=== PATIENT | male | born 1960 | race Caucasian/White ===

== ENCOUNTER 2016-11-22 09:56 | Emergency (ER) | payer BC ==
[~2016-11-22] VITALS: Ht 188 cm; Wt 112.7 kg
[2016-11-22 10:01] VITALS: TEMP 98.9
[2016-11-22] MEDS ORDERED: LOTENSIN 1010 MG/TAB (10:11)
[2016-11-22] MEDS ORDERED: LOPRESSOR 225 MG/TAB PO (10:11)
[2016-11-22] MEDS ORDERED: HCTZ12.5TAB (10:11)
[2016-11-22] MEDS ORDERED: GLUCOPHAGE500 MG/TAB PO (10:12)
[2016-11-22] MEDS ORDERED: SYNTHROID 0.10.15 MG PO (10:12)
[2016-11-22 10:50] LABS: HEMATOCRIT 46.1 % (42.0-52.0); HEMOGLOBIN 16.7 g/dl (13.5-18.0); MEAN CELL VOLUME 92 fl (80.0-100.0); MEAN CORPUSCULAR HEMOGLOBIN 33 pg (27.0-31.0); MEAN CORPUSCULAR HGB CONC 36 g/dl (33.0-37.0); MEAN PLATELET VOLUME 9.7 fl (7.4-10.4); PLATELET COUNT 181 K/mm3 (130-400); RED BLOOD COUNT 5.01 M/mm3 (4.20-5.60); REDCELL DISTRIBUTION WIDTH-CV 13.7 % (11.5-14.5)
[2016-11-22 10:56] LABS: PROTHROMBIN TIME 10.7 SECONDS (9.7-12.8)
[2016-11-22 10:59] LABS: ADJUSTED CALCIUM 9.1 mg/dL (8.4-10.2); ALANINE AMINOTRANSFERASE 31 U/L (21-72); ALBUMIN 4.4 gm/dL (3.5-5.0); ALKALINE PHOSPHATASE 67 U/L (50-136); ANION GAP 11 mmol/L (7-16); BILIRUBIN,TOTAL 1.2 mg/dL (0.0-1.0); BLOOD UREA NITROGEN 10 mg/dL (9-20); CALCIUM 9.4 mg/dL (8.4-10.2); CARBON DIOXIDE 22 mmol/L (22-30); CHLORIDE 100 mmol/L (98-107); CREATININE, serum 0.68 mg/dL (0.66-1.25); GLUCOSE 110 mg/dL (74-106); PARTIAL THROMBOPLASTIN TIME 28.2 SECONDS (26.0-37.0); POTASSIUM 4.1 mmol/L (3.4-5.0); SODIUM 133 mmol/L (137-145); TOTAL PROTEIN 7.6 gm/dL (6.4-8.2)
[2016-11-22 11:13] LABS: TROPONIN-I < 0.012 ng/mL (0.000-0.034)
[2016-11-22 11:16] LABS: BAND 11 % (0-10); BASOPHIL 2 % (0-2); MYELOCYTE 3 % (0-0); NEUTROPHILS 66 % (42.0-75.2); TOTAL CELLS COUNTED 100
[2016-11-22 11:22] LABS: POLYCHROMASIA 1+; SPHEROCYTE 2+; STOMATOCYTE 2+
[2016-11-22 11:23] LABS: ADD PATHOLOGY DIFF REVIEW YES; PLATELET ESTIMATE NORMAL (NORMAL)
[2016-11-22 11:25] LABS: PH 6 (5-8); SQUAMOUS EPITHELIAL 0-2 /hpf; URINE APPEARANCE Clear; URINE BACTERIA Rare /hpf; URINE BILIRUBIN Negative (NEGATIVE); URINE BLOOD Negative (NEGATIVE); URINE COLOR Yellow; URINE GLUCOSE Negative (NEGATIVE); URINE KETONE Negative (NEGATIVE); URINE RBC 0-2 /hpf; URINE UROBILINOGEN Negative (NEGATIVE); URINE WBC 0-2 /hpf
[2016-11-22 13:15] VITALS: BP 138/80; PULSE 60
[2016-11-24 08:47] LABS: PATHOLOGY DIFF REVIEW OK
== END 2016-11-22 13:20 | disposition home or self-care (01) ==
LOC: COL.ER 09:56
PROVIDERS: Nurse Practitioner
DX: R42 Dizziness and giddiness (principal); F43.9 Reaction to severe stress, unspecified; E11.9 Type 2 diabetes mellitus without complications; I10 Essential (primary) hypertension; E03.9 Hypothyroidism, unspecified; F17.210 Nicotine dependence, cigarettes, uncomplicated; Z79.84 Long term (current) use of oral hypoglycemic drugs; Z90.49 Acquired absence of other specified parts of digestive tract
CPT/HCPCS: J7030

== ENCOUNTER 2017-08-29 08:38 | Day surgery (SDC) | payer BC ==
[~2017-08-29] VITALS: Ht 190.5 cm; Wt 96.6 kg
[~2017-08-29 08:38] MED LIST: GLUCOPHAGE500 MG/TAB PO; HCTZ12.5TAB; LOPRESSOR 225 MG/TAB PO; LOTENSIN 1010 MG/TAB; SYNTHROID 0.10.15 MG PO
[2017-08-29 09:36] VITALS: BP 99/60; PULSE 56; TEMP 97.3
[2017-08-29] MEDS ORDERED: GLUCOPHAGE500 MG/TAB PO (10:03)
[2017-08-29] MEDS ORDERED: LOTENSIN 1010 MG/TAB PO (10:05)
[2017-08-29] MEDS ORDERED: PRIL40 PO (10:05)
[2017-08-29] MEDS ORDERED: CENTRUM SILVER1 CTB PO (10:06)
[2017-08-29] MEDS ORDERED: TOPROL XL 25MG25 MG PO (10:06)
[2017-08-29] MEDS ORDERED: EPA FISH OIL1 SGL PO (10:06)
[2017-08-29] MEDS ORDERED: VITAMIN D 400400 IU PO (10:07)
[2017-08-29 11:20] VITALS: BP 92/50; PULSE 52
[2017-08-29] MEDS ORDERED: NORCO 325 MG-51 TAB PO (11:22)
[2017-08-29] MEDS ORDERED: MOTRIN 600600 MG/TAB PO (11:23)
[2017-08-29] MEDS ORDERED: COLACE 100100 MG/CAP PO (11:23)
[2017-08-29 11:35] VITALS: BP 108/67; PULSE 45
[2017-08-29 11:50] VITALS: BP 103/59; PULSE 52
[2017-08-29 12:05] VITALS: BP 117/66; PULSE 45
[2017-08-29 12:20] VITALS: BP 111/88; PULSE 51
== END 2017-08-29 13:00 | disposition home or self-care (01) ==
LOC: SDCO 08:38
DX: K42.9 Umbilical hernia without obstruction or gangrene (principal); I10 Essential (primary) hypertension; E03.9 Hypothyroidism, unspecified; E11.21 Type 2 diabetes mellitus with diabetic nephropathy; Z79.84 Long term (current) use of oral hypoglycemic drugs; Z79.899 Other long term (current) drug therapy; J44.9 Chronic obstructive pulmonary disease, unspecified; F17.210 Nicotine dependence, cigarettes, uncomplicated
CPT/HCPCS: C1781; J0690; J1885; J2405; J2704; J3010; J7030

== ENCOUNTER 2018-01-17 23:04 | Emergency (ER) | payer BC ==
[~2018-01-17] VITALS: Ht 188 cm; Wt 98.6 kg
[~2018-01-17 23:04] MED LIST changes: +CENTRUM SILVER1 CTB PO; +COLACE 100100 MG/CAP PO; +EPA FISH OIL1 SGL PO; +LOTENSIN 1010 MG/TAB PO; +MOTRIN 600600 MG/TAB PO; +NORCO 325 MG-51 TAB PO; +PRIL40 PO; +TOPROL XL 25MG25 MG PO; +VITAMIN D 400400 IU PO
[2018-01-17 23:07] VITALS: TEMP 98.2
[2018-01-17 23:32] LABS: BASO % 0.2 % (0.0-2.0); EOS # 0.2 (0.0-0.7); EOS % 2.2 % (0-4.0); GRAN # 5.6 (1.4-6.5); GRAN % 63.5 % (42.2-75.2); HEMATOCRIT 44.5 % (42.0-52.0); HEMOGLOBIN 15.1 g/dl (13.5-18.0); LYMPH # 2.2 (1.2-3.4); LYMPH % 24.4 % (20.0-51.0); MEAN CELL VOLUME 91 fl (80.0-100.0); MEAN CORPUSCULAR HEMOGLOBIN 31 pg (27.0-31.0); MEAN CORPUSCULAR HGB CONC 34 g/dl (33.0-37.0); MEAN PLATELET VOLUME 9.8 fl (7.4-10.4); MONO # 0.8 (0.1-0.6); PLATELET COUNT 160 K/mm3 (130-400); RED BLOOD COUNT 4.87 M/mm3 (4.20-5.60); REDCELL DISTRIBUTION WIDTH-CV 13.2 % (11.5-14.5)
[2018-01-17 23:38] LABS: INR 0.9 (0.8-3.0); PROTHROMBIN TIME 10.6 SECONDS (9.7-12.8)
[2018-01-17 23:43] LABS: ALANINE AMINOTRANSFERASE 37 U/L (21-72); ALBUMIN 4.1 gm/dL (3.5-5.0); ALKALINE PHOSPHATASE 61 U/L (50-136); ANION GAP 8 mmol/L (7-16); AST,SGOT 24 U/L (15-37); BILIRUBIN,TOTAL 0.6 mg/dL (0.0-1.0); BLOOD UREA NITROGEN 15 mg/dL (9-20); CALCIUM 9.1 mg/dL (8.4-10.2); CARBON DIOXIDE 30 mmol/L (22-30); CHLORIDE 99 mmol/L (98-107); CREATININE, serum 0.72 mg/dL (0.66-1.25); GLUCOSE 122 mg/dL (74-106); POTASSIUM 3.3 mmol/L (3.4-5.0); SODIUM 136 mmol/L (137-145); TOTAL PROTEIN 7.3 gm/dL (6.4-8.2)
[2018-01-18 00:09] LABS: TROPONIN-I < 0.012 ng/mL (0.000-0.034)
[2018-01-18 02:40] VITALS: BP 137/84; PULSE 63
== END 2018-01-18 02:40 | disposition home or self-care (01) ==
LOC: COL.ER 23:04
PROVIDERS: Emergency Medicine
DX: E87.6 Hypokalemia (principal); I10 Essential (primary) hypertension; F41.9 Anxiety disorder, unspecified; E11.9 Type 2 diabetes mellitus without complications; E03.9 Hypothyroidism, unspecified; F17.210 Nicotine dependence, cigarettes, uncomplicated; Z98.890 Other specified postprocedural states; Z79.84 Long term (current) use of oral hypoglycemic drugs

== ENCOUNTER 2018-06-30 19:49 | Emergency (ER) | payer BC ==
[~2018-06-30] VITALS: Ht 190.5 cm; Wt 102.3 kg
[2018-06-30 19:54] VITALS: TEMP 98.2
[2018-06-30] MEDS ORDERED: K-PHOS ORIGINA500 MG PO (20:06)
[2018-06-30] MEDS ORDERED: SYNTHROID 0.0.025 MG PO (20:07)
[2018-06-30] MEDS ORDERED: NORMODYNE100 MG PO (20:08)
[2018-06-30 20:33] LABS: BASO % 0.2 % (0.0-2.0); EOS # 0.2 (0.0-0.7); EOS % 2.3 % (0-4.0); GRAN % 61.2 % (42.2-75.2); HEMATOCRIT 44.3 % (42.0-52.0); HEMOGLOBIN 15.4 g/dl (13.5-18.0); LYMPH # 2.3 (1.2-3.4); MEAN CELL VOLUME 90 fl (80.0-100.0); MEAN CORPUSCULAR HEMOGLOBIN 31 pg (27.0-31.0); MEAN CORPUSCULAR HGB CONC 35 g/dl (33.0-37.0); MEAN PLATELET VOLUME 10.4 fl (7.4-10.4); MONO # 0.6 (0.1-0.6); MONO % 7.5 % (1.7-9.3); PLATELET COUNT 126 K/mm3 (130-400); RED BLOOD COUNT 4.91 M/mm3 (4.20-5.60); REDCELL DISTRIBUTION WIDTH-CV 13.1 % (11.5-14.5)
[2018-06-30 20:42] LABS: ALANINE AMINOTRANSFERASE 13 U/L (21-72); ALKALINE PHOSPHATASE 71 U/L (50-136); ANION GAP 7 mmol/L (7-16); AST,SGOT 27 U/L (15-37); BILIRUBIN,TOTAL 0.4 mg/dL (0.0-1.0); BLOOD UREA NITROGEN 20 mg/dL (9-20); CALCIUM 9.1 mg/dL (8.4-10.2); CARBON DIOXIDE 26 mmol/L (22-30); CHLORIDE 102 mmol/L (98-107); GLUCOSE 111 mg/dL (74-106); LIPASE 31 U/L (23-300); POTASSIUM 4.2 mmol/L (3.4-5.0); SODIUM 136 mmol/L (137-145); TOTAL PROTEIN 6.9 gm/dL (6.4-8.2)
[2018-06-30 20:59] LABS: C-REACTIVE PROTEIN < 0.5 mg/dL (0.0-0.9); TROPONIN-I < 0.012 ng/mL (0.000-0.035)
[2018-06-30 21:28] VITALS: BP 144/78; PULSE 66
== END 2018-06-30 21:28 | disposition home or self-care (01) ==
LOC: COL.ER 19:49
PROVIDERS: Emergency Medicine
DX: M54.12 Radiculopathy, cervical region (principal); M79.602 Pain in left arm; F41.9 Anxiety disorder, unspecified; E11.9 Type 2 diabetes mellitus without complications; I10 Essential (primary) hypertension; F17.210 Nicotine dependence, cigarettes, uncomplicated; Z79.84 Long term (current) use of oral hypoglycemic drugs

== ENCOUNTER → 2019-06-05 | Outpatient (CLI) | payer BC ==
[~2019-06-05] MED LIST changes: +K-PHOS ORIGINA500 MG PO; +NORMODYNE100 MG PO; +SYNTHROID 0.0.025 MG PO
== END ==
LOC: COL.RAD 15:26
DX: J44.1 Chronic obstructive pulmonary disease with (acute) exacerbation (principal)

== ENCOUNTER → 2020-02-05 | Outpatient (CLI) | payer BC | LOC: COL.VAS 14:45 | DX: I34.0 Nonrheumatic mitral (valve) insufficiency (principal); I10 Essential (primary) hypertension; I51.7 Cardiomegaly; I51.9 Heart disease, unspecified ==

== ENCOUNTER 2020-04-17 21:05 | Emergency (ER) | payer BC ==
[~2020-04-17] VITALS: Ht 188 cm; Wt 129.5 kg
[2020-04-17 21:07] VITALS: TEMP 96.8
[2020-04-17 21:38] LABS: BASO % 0.4 % (0.0-2.0); EOS # 0.2 (0.0-0.7); EOS % 1.5 % (0-4.0); GRAN # 6.4 (1.4-6.5); GRAN % 63.9 % (42.2-75.2); HEMATOCRIT 40.1 % (42.0-52.0); HEMOGLOBIN 13.6 g/dl (13.5-18.0); LYMPH # 2.5 (1.2-3.4); LYMPH % 24.9 % (20.0-51.0); MEAN CELL VOLUME 92 fl (80.0-100.0); MEAN CORPUSCULAR HEMOGLOBIN 31 pg (27.0-31.0); MEAN CORPUSCULAR HGB CONC 34 g/dl (33.0-37.0); MEAN PLATELET VOLUME 9.8 fl (7.4-10.4); MONO # 0.8 (0.1-0.6); MONO % 7.9 % (1.7-9.3); PLATELET COUNT 159 K/mm3 (130-400); RED BLOOD COUNT 4.37 M/mm3 (4.20-5.60); REDCELL DISTRIBUTION WIDTH-CV 12.8 % (11.5-14.5)
[2020-04-17] MEDS ORDERED: ASPIRIN 81M81 MG/TA2 PO (21:40)
[2020-04-17 21:49] LABS: ALANINE AMINOTRANSFERASE 22 U/L (4-49); ALKALINE PHOSPHATASE 77 U/L (50-136); ANION GAP 11 mmol/L (7-16); AST,SGOT 26 U/L (15-37); BILIRUBIN,TOTAL 0.4 mg/dL (0.0-1.0); BLOOD UREA NITROGEN 20 mg/dL (9-20); CALCIUM 8.8 mg/dL (8.4-10.2); CARBON DIOXIDE 24 mmol/L (22-30); CHLORIDE 96 mmol/L (98-107); CREATININE, serum 1.49 (0.66-1.25); GLUCOSE 271 mg/dL (74-106); POTASSIUM 3.8 mmol/L (3.4-5.0); SODIUM 131 mmol/L (137-145); TOTAL PROTEIN 6.9 gm/dL (6.4-8.2)
[2020-04-17 22:42] LABS: TROPONIN-I < 0.012 ng/mL (0.000-0.035)
[2020-04-17 23:05] LABS: COLLECTION METHOD CLEAN CATCH
[2020-04-17 23:11] LABS: PH 5 (5-8); SQUAMOUS EPITHELIAL 0-2 /hpf; URINE APPEARANCE Clear; URINE BACTERIA None Seen /hpf; URINE BILIRUBIN Negative (NEGATIVE); URINE BLOOD Negative (NEGATIVE); URINE COLOR Yellow; URINE GLUCOSE Negative (NEGATIVE); URINE KETONE Negative (NEGATIVE); URINE LEUKOCYTE ESTERASE Negative (NEGATIVE); URINE NITRATE Negative (NEGATIVE); URINE PROTEIN(semi-quant) Negative (NEGATIVE); URINE RBC None Seen /hpf; URINE UROBILINOGEN Negative (NEGATIVE)
[2020-04-17] MEDS ORDERED: NORVASC 10MG10 MG PO (23:32)
[2020-04-17 23:46] VITALS: BP 168/84; PULSE 68
== END 2020-04-17 23:46 | disposition home or self-care (01) ==
LOC: COL.ER 21:05
PROVIDERS: Emergency Medicine
DX: I10 Essential (primary) hypertension (principal); R60.0 Localized edema; E03.9 Hypothyroidism, unspecified; E11.9 Type 2 diabetes mellitus without complications; E66.01 Morbid (severe) obesity due to excess calories; Z68.36 Body mass index [BMI] 36.0-36.9, adult; Z20.828 Contact with and (suspected) exposure to other viral communicable diseases; Z88.5 Allergy status to narcotic agent; Z88.8 Allergy status to other drugs, medicaments and biological substances; Z79.84 Long term (current) use of oral hypoglycemic drugs; Z79.82 Long term (current) use of aspirin; Z79.890 Hormone replacement therapy

== ENCOUNTER → 2020-05-14 | Outpatient (CLI) | payer BC ==
[~2020-05-14] MED LIST changes: +ASPIRIN 81M81 MG/TA2 PO; +NORVASC 10MG10 MG PO
== END ==
LOC: COL.RAD 13:44
DX: E04.1 Nontoxic single thyroid nodule (principal)

== ENCOUNTER → 2020-06-02 | Outpatient (CLI) | payer BC ==
--- NOTE | 2020-05-28 13:45 | NUR ---
LMOM WITH INSTRUCTIONS AND CALL BACK NUMBER
[~2020-06-02] VITALS: Ht 188 cm; Wt 134.4 kg
[2020-06-02 12:09] VITALS: BP 162/80; PULSE 70
[2020-06-02 12:54] VITALS: BP 162/80; PULSE 70
== END ==
LOC: COL.RAD 11:30
DX: E04.1 Nontoxic single thyroid nodule (principal)

== ENCOUNTER → 2020-07-09 | Outpatient (CLI) | payer BC ==
[~2020-07-09] VITALS: Ht 188 cm; Wt 124.0 kg
[~2020-07-09] MED LIST changes: +LASIX 20MG TABL20 MG PO
[2020-07-09 10:56] VITALS: BP 165/89; PULSE 60
[2020-07-09 11:38] VITALS: BP 160/79; PULSE 57
== END ==
LOC: COL.RAD 07-08 06:45
DX: E04.1 Nontoxic single thyroid nodule (principal); Z98.890 Other specified postprocedural states

== ENCOUNTER → 2020-10-23 | Outpatient (CLI) | payer BC | LOC: COL.RAD 09:38 | DX: R06.02 Shortness of breath (principal) ==

== ENCOUNTER 2020-12-02 12:56 | Outpatient (RCR) | payer BC | END 2021-03-02 | disposition home or self-care (01) | LOC: WSST | DX: R13.14 Dysphagia, pharyngoesophageal phase (principal) ==

== ENCOUNTER → 2020-12-08 | Outpatient (CLI) | payer BC | LOC: COL.RAD 15:30 | DX: R13.14 Dysphagia, pharyngoesophageal phase (principal) ==

== ENCOUNTER → 2021-09-17 | Outpatient (CLI) | payer SELFPAY | LOC: COL.RAD 09:57 | DX: D34 Benign neoplasm of thyroid gland (principal) ==

== ENCOUNTER → 2021-10-06 | Outpatient (CLI) | payer SELFPAY | LOC: MHCPAIN 10:52 | DX: M79.672 Pain in left foot (principal); M79.2 Neuralgia and neuritis, unspecified; M54.50 Low back pain, unspecified | CPT/HCPCS: G0463 ==

== ENCOUNTER → 2021-12-08 | Outpatient (CLI) | payer SELFPAY | LOC: MHCPAIN 11:37 | DX: M79.672 Pain in left foot (principal); M54.50 Low back pain, unspecified; M79.2 Neuralgia and neuritis, unspecified | CPT/HCPCS: G0463 ==